=== PATIENT | male | born 1945 | race Caucasian/White ===

== ENCOUNTER 2019-02-15 16:38 | Emergency (ER) | payer MEDICARE, MEDICAID ==
[~2019-02-15] VITALS: Ht 175.3 cm; Wt 99.8 kg
[2019-02-15] VITALS (7 sets, daily range): BP systolic 124–129; BP diastolic 56–82
--- NOTE | 2019-02-15 16:38 | NUR ---
ARRIVAL PT TO ER1 BY EMS FROM LONG TERM DUE TO C/O SOB FOR ONE DAY. A CHEST XRAY DONE AT LONG TERM SHOWED FLUID IN BILAT LUNGS ACCORDING TO REPORTING EMS. PT STATES HE FELL YESTERDAY AND NOW HIS SACRAL AND THORACIC AREA OF BACK ARE PAINFUL. PT HX OF COPD, WEARS 2L NC AT ALL TIMES. O2 SATS WERE 84% UPON EMS ARRIVAL. INCREASED TO 4% NC AND DUONEB WAS GIVEN. UPON ED ARRIVAL O2 SATS WERE LOW TO MID 80'S ON 4L NC. O2 CHANGED TO VENTIMASK AT 50% SATS CAME UP TO 90-94%. BSM ON, REPORT GIVEN TO EDP.
[2019-02-15] MEDS ORDERED: LASIX IV STA (17:03)
[2019-02-15] MEDS ORDERED: MORPHINE SULFATE IV STA (17:03)
--- NOTE | 2019-02-15 17:06 | PCM.EKG ---
[facility] Test Date: 2019-02-15 Test Time: 17:02:08 Pat Name: MEME LESTER Department: Room: Gender: M Tablet Technician: RT : 1945 Requested By: SUMAN CONTRERAS Order Number: [id number] Reading MD: Suman Contreras Measurements Intervals Sherman Rate: 92 P: 27 MS: 230 QRS: 169 QRSD: 134 T: 247 QT: 402 QTc: 497 Interpretive Statements Sinus rhythm with 1st degree AV block Nonspecific intraventricular block Right ventricular hypertrophy Lateral infarct, age undetermined Inferior infarct, age undetermined Marked T wave abnormality, consider anterior ischemia Abnormal ECG No previous ECG available for comparison Electronically Signed On 02-17-2019 15:51:41 CDT by Suman Contreras Please click the below link to view image of tracing.
[2019-02-15] MEDS ORDERED: ZOFRAN IV STA (17:09)
[2019-02-15 17:17] LABS: BASOPHIL % 0.2 % (0.0-0.2); HEMOGLOBIN 8.3 g/dL (13.9-16.3); LYMPHOCYTES # 1.4 10^3/uL (1.0-4.8); LYMPHOCYTES % 10.3 % (24.0-44.0); MEAN CELL HGB 23.9 pg (26-34); MEAN CELL HGB CONCENTRATION 28.2 g/dL (33-37); MEAN CORP VOLUME 84.7 fL (78-100); MEAN PLATELET VOLUME 7.5 fL (7.8-11.0); MONOCYTES # 2.1 10^3/uL (0.3-0.8); MONOCYTES % 15.8 % (5.0-12.0); NEUTROPHIL # 9.7 10^3/uL (1.8-7.7); NEUTROPHILS % 73.5 % (41.0-85.0); RED CELL DISTRIBUTION WIDTH 22.1 % (11.5-14.5); WHITE BLOOD CELL 13.2 10^3/uL (4.5-11.0)
[2019-02-15] MEDS ORDERED: DUONEB 0.5 MG-3 MG/3 ML SOLN IH STA (17:18)
[2019-02-15] MEDS ORDERED: ZOFRAN ONE (17:25)
[2019-02-15] MEDS ORDERED: LASIX ONE (17:26)
--- NOTE | 2019-02-15 17:26 | ER.PDOC ---
General Chief Complaint: Dyspnea/Respdistress Stated Complaint: DIFFICULTY BREATHING Time seen by MD: 17:33 Source: patient Exam Limitations: no limitations History of Present Illness Timing/Duration: 24 hours Severity: moderate Activities at Onset: activity/exertion, rest Prior Episodes/Possible Cause: frequent episodes Modifying Factors: improves with albuterol inhaler Associated Symptoms: cough, wheezing Prior symptoms/Treatment: Similar symptoms previous Allergies: Coded Allergies: No Known Drug Allergies (Verified Allergy, Unknown, 02/15/19) Past Medical History Medical History: asthma, CVA/TIA/stroke, congestive heart failure, COPD, diabetes, high cholesterol, hypertension, renal disease, thyroid disease Surgical History: no surgical history Social History Smoking: non-smoker, cigarettes, less than 1 pack/day Alcohol Use: none Drug Use: none Reviewed Nursing Reviewed: Vital Signs, Abn. Noted Review of Systems All Other Systems: Reviewed and Negative Physical Exam General Appearance: Mild Distress HEENT: PERRL/EOMI, Normal ENT Inspection, TMs Normal, Pharynx Normal Neck: Non-Tender, Full Range of Motion, Supple, Normal Inspection Respiratory: chest non-tender, lungs clear, normal breath sounds, no respiratory distress, no accessory muscle use, rales, retractions Cardiovascular: Normal Peripheral Pulses, Regular Rate, Rhythm, No Edema, No Gallop, No JVD, No Murmur 1 - tender 2 - tender Gastrointestinal: Normal Bowel Sounds, No Organomegaly, No Pulsatile Mass, Non Tender, Soft Extremities: Normal Range of Motion, Non-Tender, Normal Inspection, No Calf Tenderness, Normal Capillary Refill, Pedal Edema Neurologic/Psychiatric: 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 (02/15/19 17:03) Ekg-Routine (02/15/19 17:03) Furosemide (Lasix) (02/15/19 17:03) Morphine Sulfate (Morphine Sulfate) (02/15/19 17:03) Ondansetron Hcl (Zofran) (02/15/19 17:09) Ipratropium/Albuterol Sulfate (Duoneb 0. (02/15/19 17:18) Arterial Blood Gas (02/15/19 17:18) Ondansetron Hcl (Zofran) (02/15/19 17:25) Furosemide (Lasix) (02/15/19 17:26) Ipratropium/Albuterol Sulfate (Duoneb 0. (02/15/19 17:28) Xr Tspine 2 Views (02/15/19 17:50) Rt Bi-Pap/Cpap (02/15/19 18:57) Vital Signs Date Time Temp Pulse Resp B/P (MAP) Pulse Ox O2 Delivery O2 Flow Rate FiO2 02/15/19 18:45 97 90 02/15/19 18:44 124/58 (80) 02/15/19 18:43 95 26 90 S/T 40 02/15/19 17:55 94 14 89 02/15/19 17:41 94 16 92 02/15/19 17:38 131/78 02/15/19 17:11 98.8 91 20 129/82 (98) 85 Nasal Canula 4.00 02/15/19 16:50 98.8 91 20 85 Nasal Canula 02/15/19 16:50 98.8 91 20 Administered Medications Medications (Trade) Dose Ordered Sig/Wilberto Route PRN Reason Start Time Stop Time Status Last Admin Dose Admin Albuterol/ Ipratropium (Duoneb 0.5 Mg-3 Mg/3 ml Soln) 3 ml STAT STAT IH 02/15/19 17:18 02/15/19 17:19 DC 02/15/19 18:34 3 ML Furosemide (Lasix) 40 mg STAT STAT IV 02/15/19 17:03 02/15/19 17:06 DC 02/15/19 17:38 40 MG Morphine Sulfate (Morphine Sulfate) 2 mg STAT STAT IV 02/15/19 17:03 8/13/19 17:06 DC 02/15/19 17:38 2 MG Ondansetron HCl (Zofran) 4 mg STAT STAT IV 02/15/19 17:09 02/15/19 17:18 DC 02/15/19 17:38 4 MG Laboratory Tests Test 02/15/19 17:10 02/15/19 17:17 02/15/19 17:39 White Blood Count 13.2 10^3/uL (4.5-11.0) H Red Blood Count 3.47 10^6/uL (4.50-5.90) L Hemoglobin 8.3 g/dL (13.9-16.3) L Hematocrit 29.4 % (37.0-53.0) L Mean Corpuscular Volume 84.7 fL (78-100) Mean Corpuscular Hemoglobin 23.9 pg (26-34) L Mean Corpuscular Hemoglobin Concent 28.2 g/dL (33-37) L Red Cell Distribution Width 22.1 % (11.5-14.5) H Platelet Count 287 10^3/uL (150-400) Mean Platelet Volume 7.5 fL (7.8-11.0) L Neutrophils (%) (Auto) 73.5 % (41.0-85.0) Lymphocytes (%) (Auto) 10.3 % (24.0-44.0) L Monocytes (%) (Auto) 15.8 % (5.0-12.0) H Neutrophils # (Auto) 9.7 10^3/uL (1.8-7.7) H Lymphocytes # (Auto) 1.4 10^3/uL (1.0-4.8) Monocytes # (Auto) 2.1 10^3/uL (0.3-0.8) H Absolute Immature Granulocyte (auto 0.03 10^3 u/L (0-2) Immature Granulocytes % 0.20 % (0.00-0.50) Eosinophils % 0.0 % (0.0-5.0) Basophils % 0.2 % (0.0-0.2) Basophils # 0.0 10^3/uL (0.0-0.1) Eosinophil Count 0.0 10^3/uL (0.0-0.2) Prothrombin Time 12.2 SEC (9.4-11.5) H Prothrombin Time INR (Non-Therap) 1.2 Activated Partial Thromboplast Time 32.3 SEC (24.67-30.72) D-Dimer 0.47 mg/L (0.19-0.49) Sodium Level 141 mmol/L (132-145) Potassium Level 3.8 mmol/L (3.6-5.2) Chloride Level 96.0 mmol/L (96-109) Carbon Dioxide Level 34.4 mmol/L (20.0-32) H Anion Gap 14.4 Blood Urea Nitrogen 73 mg/dL (7-18) H Creatinine 3.14 mg/dL (0.59-1.40) *H Estimated GFR () 23.6 (>/=60) BUN/Creatinine Ratio 23.0 Glucose Level 120 mg/dL (70-110) H Calcium Level 9.4 mg/dL (8.4-10.5) Total Bilirubin 0.5 mg/dL (0.2-1.0) Aspartate Amino Transferase (AST) 34 U/L (0-35) Alanine Aminotransferase (ALT) 13 U/L (12-78) Alkaline Phosphatase 61 U/L (50-136) Total Creatine Kinase 343 U/L (39-308) H Troponin I 0.04 ng/mL (0.00-0.05) Pro-B-Type Natriuretic Peptide 11689 pg/mL (0-125) H Total Protein 6.8 g/dL (6.4-8.2) Albumin 2.9 g/dL (3.4-5.0) L Globulin 3.9 Differential Total Cells Counted 100 #CELLS Segmented Neutrophils 70 % (31-76) Lymphocytes 19 % (25-36) L Monocytes 11 % (3-9) H Differential Comment NORMAL Platelet Estimate ADEQUATE Platelet Morphology NORMAL Hypochromasia 1+ (NEGATIVE) Anisocytosis 2+ (NEGATIVE) Blood Morphology Comment NORMAL MORPHOLOGY Blood Gas Sample Site RT RADIAL ARTERY Blood pH 7.301 (7.350-7.450) Blood Gas PCO2 71.0 mmHg (35.0-45.0) *H Blood Gas PO2 64.7 mmHg (80.0-100.0) L Blood Gas HCO3 34.2 mmol/L (22.0-26.0) H Blood Gas Base Excess 6.5 mmol/L (-2.0-2.0) H Nicola Test POSITIVE Arterial Blood Oxygen Saturation 88.9 % (94.0-97.00) L Deoxyhemoglobin 10.7 % (0.0-5.0) H Carboxyhemoglobin 2.9 % (0.0-3.9) Methemoglobin 0.6 % (0.00-5.0) Total Hemoglobin 8.9 % (12.0-17.8) L Total Oxygen Concentration 10.8 % (13.5-17.5) L Lactic Acid (Blood Gas) 1.2 mmol/1 (0.50-2.0) Blood Gas Temperature 37 Oxygen Delivery Method VENTI-MASK FiO2 50 % (20-101) Bicarbonate 36.4 mmol/L (23-27) H Course Sepsis Screening Results: Posi: POSITIVE SEPSIS RISK Vitals & review Data Vital Sign - Last 24 Hours 02/15/19 02/15/19 02/15/19 02/15/19 16:50 16:50 17:11 17:38 Temp 98.8 98.8 98.8 Pulse 91 91 91 Resp 20 20 20 B/P (MAP) 129/82 (98) 131/78 Pulse Ox 85 85 O2 Delivery Nasal Canula Nasal Canula O2 Flow Rate 4.00 02/15/19 02/15/19 02/15/19 02/15/19 17:41 17:55 18:43 18:44 Pulse 94 94 95 Resp 16 14 26 B/P (MAP) 124/58 (80) Pulse Ox 92 89 90 O2 Delivery S/T FiO2 40 02/15/19 18:45 Pulse 97 Pulse Ox 90 Laboratory Tests Test 02/15/19 17:10 02/15/19 17:17 02/15/19 17:39 White Blood Count 13.2 10^3/uL Red Blood Count 3.47 10^6/uL Hemoglobin 8.3 g/dL Hematocrit 29.4 % Mean Corpuscular Volume 84.7 fL Mean Corpuscular Hemoglobin 23.9 pg Mean Corpuscular Hemoglobin Concent 28.2 g/dL Red Cell Distribution Width 22.1 % Platelet Count 287 10^3/uL Mean Platelet Volume 7.5 fL Neutrophils (%) (Auto) 73.5 % Lymphocytes (%) (Auto) 10.3 % Monocytes (%) (Auto) 15.8 % Neutrophils # (Auto) 9.7 10^3/uL Lymphocytes # (Auto) 1.4 10^3/uL Monocytes # (Auto) 2.1 10^3/uL Absolute Immature Granulocyte (auto 0.03 10^3 u/L Immature Granulocytes % 0.20 % Eosinophils % 0.0 % Basophils % 0.2 % Basophils # 0.0 10^3/uL Eosinophil Count 0.0 10^3/uL Prothrombin Time 12.2 SEC Prothrombin Time INR (Non-Therap) 1.2 Activated Partial Thromboplast Time 32.3 SEC D-Dimer 0.47 mg/L Sodium Level 141 mmol/L Potassium Level 3.8 mmol/L Chloride Level 96.0 mmol/L Carbon Dioxide Level 34.4 mmol/L Anion Gap 14.4 Blood Urea Nitrogen 73 mg/dL Creatinine 3.14 mg/dL Estimated GFR () 23.6 BUN/Creatinine Ratio 23.0 Glucose Level 120 mg/dL Calcium Level 9.4 mg/dL Total Bilirubin 0.5 mg/dL Aspartate Amino Transf (AST/SGOT) 34 U/L Alanine Aminotransferase (ALT/SGPT) 13 U/L Alkaline Phosphatase 61 U/L Total Creatine Kinase 343 U/L Troponin I 0.04 ng/mL Pro-B-Type Natriuretic Peptide 21783 pg/mL Total Protein 6.8 g/dL Albumin 2.9 g/dL Globulin 3.9 Differential Total Cells Counted 100 #CELLS Segmented Neutrophils 70 % Lymphocytes 19 % Monocytes 11 % Differential Comment NORMAL Platelet Estimate ADEQUATE Platelet Morphology NORMAL Hypochromasia 1+ Anisocytosis 2+ Blood Morphology Comment NORMAL MORPHOLOGY Blood Gas Sample Site RT RADIAL ARTERY Blood Gas pH 7.301 Blood Gas PCO2 71.0 mmHg Blood Gas PO2 64.7 mmHg Blood Gas HCO3 34.2 mmol/L Blood Gas Base Excess 6.5 mmol/L Nicola Test POSITIVE Arterial Blood Oxygen Saturation 88.9 % Deoxyhemoglobin 10.7 % Carboxyhemoglobin 2.9 % Methemoglobin 0.6 % Total Hemoglobin 8.9 % Total Oxygen Concentration 10.8 % Lactic Acid (Blood Gas) 1.2 mmol/1 Blood Gas Temperature 37 Oxygen Delivery Method (LAB) VENTI-MASK FiO2 50 % Bicarbonate 36.4 mmol/L Sepsis Infection Criteria Pres: None O2 Sat by Pulse Oximetry: 85 Oxygen Flow Rate: 4.00 Departure Time of Disposition: 19:00 Disposition: 02 XFER SHT-TRM HOSP Impression: Primary Impression: Congestive heart failure Condition: Improved Duration or Time Spent with Pa: 2 HRSS LEN CANAS MD Feb 15, 2019 17:26
[2019-02-15] MEDS ORDERED: DUONEB 0.5 MG-3 MG/3 ML SOLN IH ONE (17:28)
[2019-02-15 17:41] LABS: CALCIUM 9.4 mg/dL (8.4-10.5); CARBON DIOXIDE 34.4 mmol/L (20.0-32)
[2019-02-15 17:48] LABS: ABG PH 7.301 (7.350-7.450); BE(B) 6.5 mmol/L (-2.0-2.0); HCO3act 34.2 mmol/L (22.0-26.0); pO2 64.7 mmHg (80.0-100.0)
[2019-02-15 18:09] LABS: ANISOCYTOSIS 2+ (NEGATIVE); DIFFERENTIAL COMMENT NORMAL; LYMPHOCYTE 19 % (25-36); MONOCYTE 11 % (3-9); SEGMENTED NEUTROPHILS 70 % (31-76)
--- NOTE | 2019-02-15 18:09 | NUR ---
XRAY PT OFF UNIT FOR XRAY.
--- NOTE | 2019-02-15 18:43 | NUR ---
RT PATIENT PLACED ON BIPAP BY RT. DR. CANAS ON THE PHONE WITH DR. LEVINE.
--- NOTE | 2019-02-15 18:46 | DIREP ---
PROCEDURE:CHEST 1 VIEW COMPARISON:None. INDICATIONS:chf, dyspnea FINDINGS: LUNGS/PLEURA:Emphysema. Interstitial scarring in the lung bases. VASCULATURE:Normal. Unremarkable pulmonary vasculature. CARDIAC:Moderate cardiomegaly. MEDIASTINUM:Normal. No visible mass or adenopathy. BONES:Normal. No fracture or visible bony lesion. OTHER:Negative. CONCLUSION: Emphysema. Moderate cardiomegaly. No evidence of consolidation or pleural effusion Dictated by: Nadine Morales M.D. on 02/15/2019 at 06:45 PM
--- NOTE | 2019-02-15 18:49 | NUR ---
Aubrie Contreras on phone with Dr. Alfred
--- NOTE | 2019-02-15 18:49 | DIREP ---
PROCEDURE:XRAY SPINE THORACIC one view COMPARISON:None. INDICATIONS:t spine tenderness FINDINGS: Single frontal view of the thoracic spine Levocurvature of the upper thoracic spine No lateral view provided CONCLUSION:Levocurvature of the upper thoracic spine. If clinical suspicion persists, consider a lateral view of the thoracic spine Dictated by: Nadine Morales M.D. on 02/15/2019 at 06:46 PM
--- NOTE | 2019-02-15 18:50 | NUR ---
UPDATE PATIENT REQUESTED TO HAVE [facility] CALLED FOR TRANSFER REQUEST.
--- NOTE | 2019-02-15 18:51 | NUR ---
[place] Dr. Contreras on phone with [facility] Transfer line
--- NOTE | 2019-02-15 19:04 | NUR ---
EMS CALLED DISPATCH FOR TRANSFER REQUEST TO [facility]
--- NOTE | 2019-02-15 19:13 | NUR ---
UPDATE CALLED EMERGENCY CONTACT ABOUT TRANSFER AND NOT A WORKING NUMBER. CALLED AND NOTIFIED [facility] OF TRANSFER AND UNABLE TO CONTACT EMERGENCY CONTACT.
--- NOTE | 2019-02-15 20:03 | NUR ---
DEPART REPORT GIVEN TO EMS PATIENT TRANSFERRED TO [facility]. PLACED ON EMS C PAP FOR TRANSPORT. PATIENT LEFT ED WITH EMS.
--- NOTE | 2019-02-15 20:17 | NUR ---
REPORT REPORT CALLED TO JOSÉ MIGUEL AT [facility].
== END 2019-02-15 20:03 | disposition short-term general hospital (02) ==
LOC: ER 16:38 → EDBD 16:38 → ER 20:03
DX: I11.0 Hypertensive heart disease with heart failure (principal); I50.9 Heart failure, unspecified; E07.9 Disorder of thyroid, unspecified; E11.9 Type 2 diabetes mellitus without complications; E78.00 Pure hypercholesterolemia, unspecified; F17.210 Nicotine dependence, cigarettes, uncomplicated; J44.9 Chronic obstructive pulmonary disease, unspecified; Z79.899 Other long term (current) drug therapy; Z86.73 Personal history of transient ischemic attack (TIA), and cerebral infarction without residual deficits
CPT/HCPCS: 36415; 36600; 71045; 72070; 80053; 82550; 82803; 83880; 84484; 85025; 85379; 85610; 85730; 93005; 94640; 94660; 96374; 96375; 99285; J1940; J2405; J7620

== ENCOUNTER → 2019-03-14 | Outpatient (CLI) | payer MEDICAID, MEDICARE ==
[2019-03-14 17:29] LABS: BASOPHIL % 0.3 % (0.0-0.2); EOSINOPHIL # 0.4 10^3/uL (0.0-0.2); HEMOGLOBIN 6.6 g/dL (13.9-16.3); LYMPHOCYTES # 1.6 10^3/uL (1.0-4.8); LYMPHOCYTES % 20.1 % (24.0-44.0); MEAN CELL HGB 23.4 pg (26-34); MEAN CELL HGB CONCENTRATION 26.9 g/dL (33-37); MEAN CORP VOLUME 86.9 fL (78-100); MEAN PLATELET VOLUME 8.4 fL (7.8-11.0); MONOCYTES # 1.1 10^3/uL (0.3-0.8); MONOCYTES % 13.9 % (5.0-12.0); NEUTROPHIL # 4.8 10^3/uL (1.8-7.7); NEUTROPHILS % 60.3 % (41.0-85.0); PLATELET COUNT 272 10^3/uL (150-400); RED CELL DISTRIBUTION WIDTH 21.2 % (11.5-14.5)
[2019-03-14 17:36] LABS: CALCIUM 8.2 mg/dL (8.4-10.5); CARBON DIOXIDE 28.1 mmol/L (20.0-32)
[2019-03-14 21:06] LABS: ANISOCYTOSIS 3+ (NEGATIVE)
[2019-03-14 21:13] LABS: MICROCYTOSIS 2+ (NEGATIVE); TARGET CELLS 1+ (NEGATIVE)
[2019-03-14 21:14] LABS: ELLIPTOCYTES 1+ (NEGATIVE); HELMET CELLS 1+ (NEGATIVE); OVALOCYTES 1+ (NEGATIVE); SCHISTOCYTES 1+ (NEGATIVE)
== END | disposition home or self-care (01) ==
LOC: NPLAB 15:55
PROVIDERS: ATTEND Internal Medicine
DX: I12.9 Hypertensive chronic kidney disease with stage 1 through stage 4 chronic kidney disease, or unspecified chronic kidney disease (principal); E11.22 Type 2 diabetes mellitus with diabetic chronic kidney disease; N18.3 Chronic kidney disease, stage 3 (moderate); J44.9 Chronic obstructive pulmonary disease, unspecified
CPT/HCPCS: 36415; 80053; 83880; 85025